=== PATIENT | male | born 1995 | race Caucasian/White ===

== ENCOUNTER 2017-09-12 05:52 | Day surgery (SDC) | payer BC ==
[2017-09-10 11:38] VITALS: BMI 30.1
[2017-09-12] MEDS ORDERED: PROPOFOL 20 ML ONE (07:20)
[2017-09-12] MEDS ORDERED: MIDAZOLAM HCL 2 MG/2 ML SINGLE DOSE VIAL ONE (07:20)
[2017-09-12] MEDS ORDERED: LIDOCAINE HCL/PF 2% SDV 5ML VIAL ONE (07:21)
[2017-09-12] MEDS ORDERED: EPINEPHrine 1:1,000 1 MG/1 ML - 30ML VIAL (INJECTION) ONE (07:30)
[2017-09-12] MEDS ORDERED: ceFAZolin SODIUM 1 GM VIAL ONE (08:05)
[2017-09-12] MEDS ORDERED: ONDANSETRON 4 MG/2 ML VIAL ONE ×2 (08:07→09:30)
[2017-09-12] MEDS ORDERED: DEXAMETHASONE SOD PHOSPHATE 4 MG/1 ML VIAL ONE (08:07)
[2017-09-12] MEDS ORDERED: BUPIVACAINE HCL/PF 2.5 MG/ML - 30 ML VIAL IJ ONE (08:08)
[2017-09-12] MEDS ORDERED: KETOROLAC TROMETHAMINE 30 MG/1 ML VIAL ONE (08:56)
[2017-09-12] MEDS ORDERED: ONDANSETRON 4 MG/2 ML VIAL IVPUSH PRN (09:13)
[2017-09-12] MEDS ORDERED: PROMETHAZINE HCL 25 MG/1 ML VIAL IVPUSH PRN (09:13)
[2017-09-12] MEDS ORDERED: LACTATED RINGERS SOLUTION 1,000 ML IV SCH (09:15)
[2017-09-12] MEDS ORDERED: ONDANSETRON 4 MG/2 ML VIAL IVPUSH ONE (09:29)
--- NOTE | 2017-09-12 09:55 | OP ---
Operative Note - Note: Operative Date: 09/12/17 Pre-Operative Diagnosis: Left knee medial meniscus tear Operation: Surgical arthroscopy left knee. Partial lateral meniscectomy Findings: Bucket handle tear lateral meniscus Post-Operative Diagnosis: Same as Pre-op Surgeon: Alexander Luther Anesthesiologist/BROACHING MACHINE SET UP OPERATOR: Izaiah Best Anesthesia: General Estimated Blood Loss (mls): 0 Operative Report Dictated: Yes
[2017-09-12] MEDS ORDERED: oxyCODONE HCL 5 MG TABLET ONE (10:40)
[2017-09-12 11:13] VITALS: BP 118/76; PULSE 69; TEMP 98
--- NOTE | 2017-09-22 00:44 | OP ---
DATE OF OPERATION: 09/12/2017 PREOPERATIVE DIAGNOSIS: Left knee lateral meniscus tear. POSTOPERATIVE DIAGNOSIS: Left knee lateral meniscus tear. SURGICAL PROCEDURE: Surgical arthroscopy left knee with partial lateral meniscectomy. TOURNIQUET TIME: 23 minutes at 250 mmHg. MD HORTENCIA Kinney/[id number]
== END 2017-09-12 11:15 | disposition home or self-care (01) ==
LOC: FASU 05:52
PROVIDERS: ATTEND Orthopaedic Surgery Adult Reconstructive Orthopaedic Surgery
PROC: 0SBD4ZZ Excision of Left Knee Joint, Percutaneous Endoscopic Approach (ICD-10-PCS; principal; 2017-09-12 08:38)
DX: S83.282A Other tear of lateral meniscus, current injury, left knee, initial encounter (principal); X58.XXXA Exposure to other specified factors, initial encounter; Y93.9 Activity, unspecified; Y92.9 Unspecified place or not applicable
CPT/HCPCS: 94760